=== PATIENT | male | born 1950 | race Caucasian/White ===

== ENCOUNTER 2020-12-08 10:04 | Emergency (ER) | payer MEDICARE, OTHER ==
[~2020-12-08] VITALS: Ht 177.8 cm; Wt 94.2 kg
[2020-12-08] MEDS ORDERED: predniSONE 20 mg tablet PO ONE (10:30)
[2020-12-08] MEDS ORDERED: diphenhydrAMINE 25mg capsule PO ONE (10:30)
[2020-12-08] MEDS ORDERED: famotidine 20mg tablet PO ONE ×2 (10:38→10:40)
--- NOTE | 2020-12-08 11:16 | NUR ---
Patient states he notices an improvment of symptoms.
[2020-12-08 11:48] VITALS: BP 129/72
[2020-12-08] MEDS ORDERED: PRED20TA PO (11:48)
[2020-12-08] MEDS ORDERED: EPIN0.3P3 IM (11:48)
[2020-12-08] MEDS ORDERED: DIPH25CA52 PO (11:48)
[2020-12-08] MEDS ORDERED: FAMO40TA73 PO (11:48)
== END 2020-12-08 12:05 | disposition home or self-care (01) ==
LOC: ER 10:05
DX: L27.0 Generalized skin eruption due to drugs and medicaments taken internally (principal); T50.8X5A Adverse effect of diagnostic agents, initial encounter; Z88.8 Allergy status to other drugs, medicaments and biological substances; Y92.89 Other specified places as the place of occurrence of the external cause
CPT/HCPCS: 99284; J7512; Q0163